=== PATIENT | female | born 1950 | race Asian ===

== ENCOUNTER 2021-01-08 22:16 | Emergency (ER) | payer MEDICARE, MEDICAID, SELFPAY ==
[~2021-01-08] VITALS: Ht 157.5 cm; Wt 74.8 kg
[2021-01-08 22:23] VITALS: BP 164/101
--- NOTE | 2021-01-08 22:31 | NUR ---
PT JESSICA ALS. TAKEN TO BED 3
--- NOTE | 2021-01-08 22:35 | NUR ---
SEEN AND EXAMINED BY LORNE AND CARRIED OUT.
--- NOTE | 2021-01-08 22:53 | NUR ---
X-Ray at bedside.
[2021-01-08 23:06] LABS: BASOPHILS % (AUTO) 0.1 % (0.0-2.0); EOSINOPHILS % (AUTO) 0.1 % (0.0-4.0); HEMATOCRIT 37.4 % (36-48); HEMOGLOBIN 12.4 g/dL (12.0-16.0); LYMPHOCYTES # (AUTO) 0.2 K/uL (2.5-16.5); LYMPHOCYTES % (AUTO) 1.9 % (20.5-51.1); MEAN CORPUSCULAR HEMOGLOBIN 31 pg (27-31); MEAN CORPUSCULAR HGB CONC 33 g/dL (33-37); MONOCYTES # (AUTO) 0.6 K/uL (0.8-1.0); NEUTROPHILS # (AUTO) 10.3 K/uL (1.8-7.7); NEUTROPHILS % (AUTO) 92.9 % (42.2-75.2); PLATELET COUNT (AUTO) 218 K/uL (140-450); RED BLOOD CELL COUNT(AUTO) 4.06 MIL/uL (4.20-5.40); RED CELL DISTRIBUTION WIDTH 13.4 % (11.6-13.7); WHITE BLOOD COUNT (AUTO) 11.1 K/uL (4.8-10.8)
[2021-01-08 23:30] LABS: ALBUMIN 2.5 g/dL (3.4-5.0); ANION GAP 14.1 (8-16); CARBON DIOXIDE 23.6 mmol/L (21-32); CREATININE 0.8 mg/dL (0.6-1.3); POTASSIUM 3.7 mmol/L (3.5-5.1); TOTAL BILIRUBIN 1.1 mg/dL (0.0-1.0)
--- NOTE | 2021-01-08 23:34 | NUR ---
RETURN CALL FROM PT DAUGHTER WHO SPOKE WITH DR. LUDWIG
[2021-01-08] MEDS ORDERED: FUROSEMIDE 40 MG/4 ML VIAL IVP ONE (23:35)
[2021-01-08] MEDS ORDERED: PIPERACILLIN/TAZOBACTAM 4.5 GM in DEXTROSE 5% 100 ML IV ONE (23:45)
--- NOTE | 2021-01-08 23:45 | NUR ---
MEDICATED PER [facility] ORDER.
[2021-01-08] MEDS ORDERED: PIPERACILLIN/TAZOBACTAM 4.5 GM VIAL IV ONE (23:53)
--- NOTE | 2021-01-09 00:10 | NUR ---
SWABS FOR ZOE , NOVEL SENT TO LAB
--- NOTE | 2021-01-09 00:43 | NUR ---
Patient appears to be resting comfortably in bed. Vital Signs within normal limits. Respirations even and unlabored.
--- NOTE | 2021-01-09 03:15 | NUR ---
REPORT GIVEN TO VALERIA RASMUSSEN.
--- NOTE | 2021-01-09 03:25 | NUR ---
Patient to be transferred to [facility]. Is being transferred due to INSURANCE REQUEST. Receiving facility has accepting physician and available space. ER physician has signed transfer form. Patient or responsible democrat has agreed to transfer and signed form. Patient belongings inventoried and will be sent with patient. Copy of nursing notes, lab reports, EKG, Physicians Orders and X-rays to be sent with patient. Report called to VALERIA RASMUSSEN at receiving facility. [facility] ambulance service has been called for transfer. ETA AT [id number].
--- NOTE | 2021-01-09 03:37 | NUR ---
CALL UP JOANN HER DAUGHTER, REGARDING HER TRANSFER TO [facility], [facility] [place], BED 215 A , UNDER THE SERVICE OF DR. PURVIS.
--- NOTE | 2021-01-09 04:40 | NUR ---
[facility] TRANSPORT AT BEDSIDE
[2021-01-09 04:46] VITALS: BP 122/74
--- NOTE | 2021-01-09 05:00 | NUR ---
PT TAKEN BY [facility]SP[facility] TO [facility] [place] BED [address]
== END 2021-01-09 05:00 | disposition short-term general hospital (02) ==
LOC: MED 22:16
DX: J69.0 Pneumonitis due to inhalation of food and vomit (principal); Z20.822 Contact with and (suspected) exposure to COVID-19; I50.9 Heart failure, unspecified; I11.0 Hypertensive heart disease with heart failure; E11.9 Type 2 diabetes mellitus without complications; Z86.73 Personal history of transient ischemic attack (TIA), and cerebral infarction without residual deficits
CPT/HCPCS: 36415; 71045; 80053; 83605; 83880; 84484; 85025; 87040; 87426; 93005; 96365; 96375; 99285; J1940; J2543; U0003; Q0092